=== PATIENT | male | born 1980 | race Caucasian/White ===

== ENCOUNTER 2016-09-26 22:01 | Emergency (ER) | payer OTHER ==
[~2016-09-26] VITALS: Ht 177.8 cm; Wt 80.1 kg
[2016-09-26 22:08] VITALS: TEMP 36.9; Ht 177.8 cm; Wt 80.1 kg
[2016-09-26] MEDS ORDERED: KETOROLAC TROMETHAMINE 30 MG/ML VIAL IV STA (22:40)
[2016-09-26] MEDS ORDERED: DEXAMETHASONE SOD INJ 10 MG/ML VIAL IV ONE (22:45)
[2016-09-26] MEDS ORDERED: SODIUM CHLORIDE 0.9% 1000ML 1,000 ML IV ONE (22:45)
[2016-09-26 22:55] LABS: BASO % 0.3 %; BASO ABS # 0.03 K/uL (0-0.2); COMPLETE YES; EOS % 1.8 %; HEMATOCRIT 41.2 % (42-52); IG% 0.4 %; LYMPH % 34.8 %; LYMPH ABS # 4.14 K/uL (1.2-3.4); MEAN CELL VOLUME 83.4 fL (80-100); MEAN CORPUSCULAR HEMOGLOBIN 30.2 pg (25-34); MEAN CORPUSCULAR HGB CONC 36.2 g/dl (32-36); MEAN PLATELET VOLUME 9.5 fL (7.4-10.4); MONO % 5.8 %; NEUT % 56.9 %; PLATELET COUNT 273 K/uL (130-400); RED BLOOD COUNT 4.94 M/uL (4.7-6.1); WHITE BLOOD COUNT 11.91 K/uL (4.8-10.8)
[2016-09-26 23:18] LABS: URINE APPEARANCE CLOUDY (CLEAR); URINE BILIRUBIN NEG (NEG); URINE COLOR YELLOW; URINE EPITHELIAL CELL AUTO 0-5 /lpf (0-5); URINE NITRITE NEG (NEG); URINE PH 7.5 (4.5-7.5); URINE SPECIFIC GRAVITY 1.018 (1.000-1.030); UROBILINOGEN NEG (NEG); ZZUR CULT IF INDIC CLEAN CATCH NO
[2016-09-26 23:26] LABS: MANUAL MICROSCOPIC REQUIRED? NO; REVIEW REQ? NO
[2016-09-26 23:49] LABS: ALB/GLOB RATIO 0.9 (0.9-2); ALKALINE PHOSPHATASE 67 U/L (45-117); AST/SGOT 33 U/L (15-37); BLOOD UREA NITROGEN 21 mg/dl (7-18); BUN/CREATININE RATIO 20.5 (10-20); C-REACTIVE PROTEIN 0.54 mg/dl (0-0.29); CALCIUM 8.5 mg/dl (8.5-10.1); CARBON DIOXIDE 28 mmol/L (21-32); CHLORIDE 102 mmol/L (98-107); CKMB/CK RATIO 2.2 (0-3.0); MAGNESIUM 1.9 mg/dl (1.8-2.4); POTASSIUM 3.7 mmol/L (3.5-5.1); SODIUM 137 mmol/L (136-145)
[2016-09-26 23:55] LABS: GLUCOSE 113 mg/dl (70-99)
[2016-09-26 23:59] LABS: ALT/SGPT 36 U/L (12-78)
[2016-09-27 00:09] LABS: LYME DISEASE AB IGG NEG (NEG); LYME DISEASE AB IGM NEG (NEG)
[2016-09-27] MEDS ORDERED: LORAZEPAM 2 MG/ML 1 ML VIAL IV STA (00:31)
[2016-09-27] MEDS ORDERED: GADAVIST IV PRN (03:00)
[2016-09-27] MEDS ORDERED: PRED20TA PO (06:27)
[2016-09-27 06:42] VITALS: BP 118/72; PULSE 68; O2SAT 98
--- NOTE | 2016-09-27 07:07 | EMERGENCY ROOM VISIT NOTE ---
History First contact with patient: 22:18 Chief Complaint: LEG PAIN,LEG INJURY Stated Complaint: PAIN/NUMBNESS IN LEGS,DIZZY History of Present Illness The patient is a 36 year old male who presents to the Emergency Room with complaints of bilateral lower extremity pain worsening over the past one day. The patient states that he was trying to sleep this evening when he had a burning sensation in his left lateral thigh that radiates down to his left foot. He has had intermittent symptoms of this over the past few weeks. He has not had a fever or chills. The patient reports having a fall down steps at home, where she fell backwards, and struck his back about 5 weeks ago. The patient did not seek medical attention following this injury. The patient is able to ambulate and does not have difficulty with bowel or bladder control. The patient reports a past history of opioid addiction and abuse. He denies IV drug abuse. He is currently under the care of a methadone clinic, but does freely discuss this. He does not report other symptoms. He rates his current discomfort an 8/10. He has not had anything [id number] for his discomfort. Review of Systems More than 10 systems were reviewed and otherwise negative with the exception of history of present illness. Past Medical/Surgical History Medical Problems: (1) No Known Active Medical Problems Family History No pertinent family history Social History Smoking Status: Current Every Day Smoker Alcohol Use: occasionally Drug Use: other (past history of opioid pill abuse) Marital Status: Occupation Status: employed Current/Historical Medications Scheduled Prednisone (Prednisone), 0 PO DAILY Allergies Coded Allergies: No Known Allergies (Unverified , 07/02/13) Physical Exam Vital Signs Date Time Temp Pulse Resp B/P Pulse Ox O2 Delivery O2 Flow Rate FiO2 09/27/16 06:42 68 18 118/72 98 Room Air 09/27/16 05:08 63 16 112/60 98 Room Air 09/27/16 03:11 64 18 118/69 95 Room Air 09/27/16 00:36 68 134/18 96 Room Air 09/26/16 23:20 61 18 142/70 97 Room Air 09/26/16 22:08 36.9 75 18 132/90 97 Room Air Physical Exam VITALS: Vitals are noted on the nurse's note and reviewed by myself. Vital signs stable. GENERAL: Well-developed, well-nourished, white male, who is in no acute distress and resting comfortably. Patient is cooperative with the examination. HEAD: Normocephalic atraumatic. HEART: Regular rate and rhythm without murmurs gallops or rubs. LUNGS: Clear to auscultation bilaterally without wheezes, rales or rhonchi. No retractions or accessory muscle use. MUSCULOSKELETAL: There is mild low back tenderness on palpation. No distinct SI joint tenderness. Most of the tenderness is through the L2 to S1 distribution. No erythema or edema. Negative straight leg raise bilateral. Normal deep tendon reflexes to the lower extremities. No saddle paresthesias. Neurovascular status is intact the distal extremities. NEURO: Patient was alert and oriented to person place and time. CN II through XII grossly intact. Medical Decision & Procedures ER Provider Diagnostic Interpretation: Preliminary Findings Only See Final Report For Complete Findings CT L SPINE: There are 5 [id number] lumbar vertebrae. Bones are osteopenic. There are subacute nondisplaced fractures through the right L3 and L4 transverse processes with visible callus formation compatible with healing. Vertebral body height and alignment are maintained. There is no evidence of acute fracture or subluxation. There is mild multilevel degenerative disc disease, worst at L4-L5 with mild loss of disc height and trace degenerative retrolisthesis of L4. Sacroiliac joints are normally aligned. Visualized portion of the abdominal cavity is unremarkable. Preliminary Findings Only See Final Report For Complete Findings MRI L SPINE : Comparison is made to CT lumbar spine performed 09/26/16. The conus medullaris is seen opposite L1 and appears normal. There is no evidence of cord compression. There is no abnormal cord signal. There is no abnormal enhancement of the conus or the cauda equina following contrast administration. There is disc desiccation at L4-L5 and L5-S1. There is disc height loss at L4- L5. There are endplate changes at the L4-L5 disc, most prominent in the anterior inferior L4 endplate consisting of T1 signal hypointensity, T2 signal hyperintensity, and postcontrast enhancement, compatible with Modic type I degenerative endplate changes. There is a high intensity zone in the left foraminal posterior aspect of the L4-L5 disc on T2-weighted images representing an annular fissure. There is mild right foraminal narrowing at L4-L5 and mild bilateral foraminal narrowing at L5-S1. Redemonstrated are subacute fractures of the right L3 and L4 transverse processes with STIR hyperintense signal. Laboratory Results 09/26/16 22:38 Red Blood Count 4.94, Mean Corpuscular Volume 83.4, Mean Corpuscular Hemoglobin 30.2, Mean Corpuscular Hemoglobin Concent 36.2, Mean Platelet Volume 9.5, Neutrophils (%) (Auto) 56.9, Lymphocytes (%) (Auto) 34.8, Monocytes (%) (Auto) 5.8, Eosinophils (%) (Auto) 1.8, Basophils (%) (Auto) 0.3, Neutrophils # (Auto) 6.78, Lymphocytes # (Auto) 4.14, Monocytes # (Auto) 0.69, Eosinophils # (Auto) 0.22, Basophils # (Auto) 0.03 09/26/16 22:38 Test 09/26/16 22:38 09/26/16 23:00 White Blood Count 11.91 K/uL (4.8-10.8) Red Blood Count 4.94 M/uL (4.7-6.1) Hemoglobin 14.9 g/dL (14.0-18.0) Hematocrit 41.2 % (42-52) Mean Corpuscular Volume 83.4 fL (80-100) Mean Corpuscular Hemoglobin 30.2 pg (25-34) Mean Corpuscular Hemoglobin Concent 36.2 g/dl (32-36) Platelet Count 273 K/uL (130-400) Mean Platelet Volume 9.5 fL (7.4-10.4) Neutrophils (%) (Auto) 56.9 % Lymphocytes (%) (Auto) 34.8 % Monocytes (%) (Auto) 5.8 % Eosinophils (%) (Auto) 1.8 % Basophils (%) (Auto) 0.3 % Neutrophils # (Auto) 6.78 K/uL (1.4-6.5) Lymphocytes # (Auto) 4.14 K/uL (1.2-3.4) Monocytes # (Auto) 0.69 K/uL (0.11-0.59) Eosinophils # (Auto) 0.22 K/uL (0-0.5) Basophils # (Auto) 0.03 K/uL (0-0.2) RDW Standard Deviation 37.6 fL (36.4-46.3) RDW Coefficient of Variation 12.5 % (11.5-14.5) Immature Granulocyte % (Auto) 0.4 % Immature Granulocyte # (Auto) 0.05 K/uL (0.00-0.02) Erythrocyte Sedimentation Rate 18 mm/hr (0-14) Anion Gap 7.0 mmol/L (3-11) Est Creatinine Clear Calc Drug Dose 103.4 ml/min Estimated GFR () 110.2 Estimated GFR (Non- 95.1 BUN/Creatinine Ratio 20.5 (10-20) Calcium Level 8.5 mg/dl (8.5-10.1) Magnesium Level 1.9 mg/dl (1.8-2.4) Total Bilirubin 0.4 mg/dl (0.2-1) Aspartate Amino Transf (AST/SGOT) 33 U/L (15-37) Alanine Aminotransferase (ALT/SGPT) 36 U/L (12-78) Alkaline Phosphatase 67 U/L (45-117) Total Creatine Kinase 293 U/L (39-308) Creatine Kinase MB 6.5 ng/ml (0.5-3.6) Creatine Kinase MB Ratio 2.2 (0-3.0) Troponin I < 0.015 ng/ml (0-0.045) C-Reactive Protein 0.54 mg/dl (0-0.29) Total Protein 7.3 gm/dl (6.4-8.2) Albumin 3.5 gm/dl (3.4-5.0) Globulin 3.8 gm/dl (2.5-4.0) Albumin/Globulin Ratio 0.9 (0.9-2) Thyroid Stimulating Hormone (TSH) 5.000 uIu/ml (0.300-4.500) Lyme Disease IgG Antibody NEG (NEG) Lyme Disease IgM Antibody NEG (NEG) Urine Color YELLOW Urine Appearance CLOUDY (CLEAR) Urine pH 7.5 (4.5-7.5) Urine Specific [place] 1.018 (1.000-1.030) Urine Protein NEG (NEG) Urine Glucose (UA) NEG (NEG) Urine Ketones NEG (NEG) Urine Occult Blood NEG (NEG) Urine Nitrite NEG (NEG) Urine Bilirubin NEG (NEG) Urine Urobilinogen NEG (NEG) Urine Leukocyte Esterase NEG (NEG) Urine WBC (Auto) 0 /hpf (0-5) Urine RBC (Auto) 0-4 /hpf (0-4) Urine Hyaline Casts (Auto) 0 /lpf (0-5) Urine Epithelial Cells (Auto) 0-5 /lpf (0-5) Urine Bacteria (Auto) NEG (NEG) Medications Administered Medications (Trade) Dose Ordered Sig/Mynor Route Start Time Stop Time Status Last Admin Dose Admin Sodium Chloride (Nss 1000ml) 1,000 ml @ 999 mls/hr Q1H1M ONCE IV 09/26/16 22:45 09/26/16 23:45 DC 09/26/16 22:51 999 MLS/HR Dexamethasone Sodium Phosphate (Decadron Inj) 10 mg NOW ONCE IV 09/26/16 22:45 09/26/16 22:46 DC 09/26/16 22:50 10 MG Ketorolac Tromethamine (Toradol Inj) 30 mg NOW STAT IV 09/26/16 22:40 09/26/16 22:45 DC 09/26/16 22:51 30 MG Lorazepam (Ativan Inj) 2 mg NOW STAT IV 09/27/16 00:31 09/27/16 00:35 DC 09/27/16 02:02 2 MG ED Course Physical exam and history were performed. Nursing notes and EMR were reviewed. Patient appears to have bilateral lower extremity pains with lateral paresthesias. The patient does not have bowel or bladder control issues. He does have a fall 4 or 5 weeks ago of uncertain significance. The patient does have a history of opioid drug abuse. IV access was established and labs were obtained. The patient was hydrated with normal saline and provided IV Toradol and IV Decadron. Because of the history of trauma I did elect CT scan of the L- spine. The patient's blood work is as above and was reviewed. The patient does have a very slightly elevated white blood cell count. He does not have significant anemia,, or gross electrolyte imbalance. His CRP and ESR are also slightly elevated. CT scan of the lumbar spine shows subacute transverse process fractures, which may be from his fall, but do not appear to be directly contributing to his symptoms today.. I discussed the case with my attending physician, Dr Jin, who remained closely involved in patient care and decision making. We have concern is the patient has vague neurologic symptoms with history of drug abuse. He also has an elevated sedimentation rate and CRP, and we could not rule out discitis or other infectious etiology. Because of this the patient was felt to be a good candidate for MRI. This was ordered. The patient was provided IV Ativan prior to the MRI. MRI returns as above and shows multiple findings at the L4, L5, and S1 levels. This clinically would correlate with the patient's symptoms in his lower extremities. Because he does have findings on MRI and discussed the case with the on-call orthospine specialist, . Dr. Haddad felt patient was a good candidate for outpatient follow-up. He recommended a course of steroids, which seems reasonable. Because the patient is on methadone we will not provide any further analgesics. I discussed the patient's findings at length with him. He is to contact Dr. Haddad's office later this morning to arrange appropriate follow-up. The patient was otherwise invited back to the ER with any new, worsening, or concerning symptoms. He voiced understanding was pleased with plan of care and rated his discomfort a 0/10 at the time of departure. The chart was completed utilizing [employer] Speech Voice Recognition Software. Grammatical errors, random word insertions, pronoun errors, and incomplete sentences are an occasional consequence of this system due to software limitations, ambient noise, and hardware issues. Any formal questions or concerns about the content, text, or information contained within the body of this dictation should be directly addressed to the provider for clarification. . Medical Decision Differential diagnosis: Etiologies such as musculoskeletal, disc herniation, fracture, aortic disease, metastatic disease, cord compression, discitis, infection, renal colic, gastrointestinal, acute exacerbation of chronic back pain, sciatica, cauda equina, as well as others were entertained. [place] Drug [place] Search Results: patient reviewed within database, see additional documentation Impression Primary Impression: Low back pain with sciatica Additional Impression: Fracture of transverse process of vertebra Departure Information Dispostion Home / Self-Care Condition GOOD Prescriptions Prednisone (Prednisone) 20 Mg Tab 0 PO DAILY, #18 TAB 3 DAILY FOR 3 DAYS, THEN 2 DAILY FOR 3 DAYS, THEN 1 DAILY FOR 3 DAYS. Prov: Ulises Parry PA-C 09/27/16 Referrals Amando Haddad, DO Forms HOME CARE DOCUMENTATION FORM, IMPORTANT VISIT INFORMATION Patient Instructions A Signature Page, My [facility] Additional Instructions You were seen and evaluated today on an emergency basis only. This is not a substitute for, or an effort to provide, complete comprehensive medical care. It is not possible to recognize and treat all injuries or illnesses in a single emergency department visit. For this reason it is recommended that you followup with [facility], Dr. Haddad's office, by telephone today to arrange a follow-up appointment. For baseline pain relief you may alternate ibuprofen and acetaminophen every 4 hours for pain control. Take 600 mg ibuprofen (Advil) and then 4 hours later take 1000 mg acetaminophen (Tylenol). Do not take more than 3000 mg acetaminophen in a single day. Take prednisone as prescribed You are welcome to return to the emergency department anytime with new, worsening, or concerning symptoms.
--- NOTE | 2016-09-27 07:19 | DIAGNOSTIC IMAGING REPORT ---
CT LUMBAR SPINE WITHOUT CT DOSE: 677.28 mGy.cm CLINICAL HISTORY: Low back pain status post trauma TECHNIQUE: Helical images were acquired in transverse plane. Reformatted sagittal and coronal images were reviewed. CONTRAST: No contrast was administered COMPARISON STUDY: None. FINDINGS: L1-2 level: There is no evidence of significant disc bulge or focal herniation. There is no evidence of spinal or foraminal stenosis. L2-3 level: There is no evidence of significant disc bulge or focal herniation. There is no evidence of spinal or foraminal stenosis. L3-4 level: There is no evidence of significant disc bulge or focal herniation. There is no evidence of spinal or foraminal stenosis. L4-5 level: There is a circumferential disc bulge with mild to moderate spinal stenosis. L5-S1 level: There is no evidence of significant disc bulge or focal herniation. There is no evidence of spinal or foraminal stenosis. No acute vertebral body fractures are visualized. There are healing right L3 and L4 transverse process fractures. IMPRESSION: 1. Healing right L3 and L4 transverse process fractures 2. No acute vertebral body fractures 3. Mild to moderate spinal stenosis the L4-5 level. Electronically signed by: Douglas Zapata M.D. 09/27/2016 7:17 AM
--- NOTE | 2016-09-27 07:25 | DIAGNOSTIC IMAGING REPORT ---
MRI LUMBAR SPINE COMBINATION CLINICAL HISTORY: Low back pain. Elevated sedimentation rate. Elevated white count. History of drug use. Possible discitis/osteomyelitis. TECHNIQUE: Sagittal and axial T1, T2 and STIR images were obtained. Imaging was performed before and after the administration of 8 cc of intravenous Gadavist COMPARISON STUDY: Noncontrast CT scan dated 09/26/2016 OBSERVATIONS: The vertebral bodies and posterior elements appear intact. There is no abnormal bony signal present to suggest a marrow replacement process. L1-2: No disc protrusions or extrusions. No evidence of spinal canal or neural foraminal compromise. L2-3: No disc protrusions or extrusions. No evidence of spinal canal or neural foraminal compromise. L3-4: No disc protrusions or extrusions. No evidence of spinal canal or neural foraminal compromise. L4-5: There is a circumferential disc bulge with mild spinal stenosis. There is a left posterior lateral annular fissure. There is mild left-sided foraminal narrowing. L5-S1: No disc protrusions or extrusions. There is no evidence of spinal stenosis. There is mild bilateral foraminal narrowing.. The conus medullaris and cauda equina appear normal. There are no findings to indicate discitis or osteomyelitis. There is marrow edema involving the right L3 and L4 transverse processes, consistent with the patient's known healing fractures. There are no pathologically enhancing masses. IMPRESSION: 1. No evidence of discitis or osteomyelitis 2. Degenerative changes the L4-5 level with mild spinal stenosis, and mild left-sided foraminal narrowing. There is a left-sided annular fissure 3. Mild bilateral foraminal narrowing at the L5-S1 level 4. Edema involving the right L3 and L4 transverse processes, consistent with the patient's known healing fractures Electronically signed by: Douglas Zapata M.D. 09/27/2016 7:23 AM
== END 2016-09-27 06:44 | disposition home or self-care (01) ==
LOC: C.EDB 22:02
DX: M54.40 Lumbago with sciatica, unspecified side (principal); S32.009A Unspecified fracture of unspecified lumbar vertebra, initial encounter for closed fracture; W10.9XXA Fall (on) (from) unspecified stairs and steps, initial encounter; F17.200 Nicotine dependence, unspecified, uncomplicated

== ENCOUNTER 2016-10-26 10:02 | Emergency (ER) | payer OTHER ==
[~2016-10-26] VITALS: Ht 177.8 cm; Wt 81.1 kg
[~2016-10-26 10:02] MED LIST: PRED20TA PO
[2016-10-26 10:06] VITALS: TEMP 36.9; Ht 177.8 cm; Wt 81.1 kg
[2016-10-26] MEDS ORDERED: HYDROCODONE/ACETAMINOPHEN 7.5/325MG TAB PO STA (11:05)
[2016-10-26] MEDS ORDERED: CYCLOBENZAPRINE HCL 10 MG TAB PO STA (11:05)
--- NOTE | 2016-10-26 11:08 | EMERGENCY ROOM VISIT NOTE ---
History Report prepared by Tanya: Kaleb Brooks Under the Supervision of: Dr. Rocio Butcher M.D. First contact with patient: 10:52 Chief Complaint: BACK PAIN Stated Complaint: LOWER BACK PAIN-ASSOCIATED W/FRACTURE History of Present Illness The patient is a 36 year old male who presents to the Emergency Room with complaints of worsening back pain for the past two weeks. The patient slipped and fell two months ago where he landed on his back on the stairs inside his home. He fractured his L3 and L4 transverse processes and has some disc herniation in his lower lumbar spine. The patient complains of back pain, numbness, and tingling in his legs. He notes that he has recently developed a limp. He also notes that bowel movements worsen the discomfort. He denies loss of control of his bowels or bladders. He has a follow-up appointment with his PCP in the next few days. Source of History: patient Onset: 2 weeks Position: back Timing: worsening Modifying Factors (Worsening): other (bowel movement) Associated Symptoms: + numbness (in legs) Note: Other associated symptoms: tingling in legs, limping Denies: loss of control of bowels or bladder Review of Systems See HPI for pertinent positives & negatives. A total of 10 systems reviewed and were otherwise negative. Past Medical & Surgical Medical Problems: (1) No Known Active Medical Problems Family History No pertinent family history Social History Smoking Status: Current Every Day Smoker Alcohol Use: occasionally Drug Use: other Marital Status: Occupation Status: employed Current/Historical Medications Scheduled Prednisone (Prednisone), 40 MG PO DAILY Scheduled PRN Cyclobenzaprine Hcl (Flexeril), 5 MG PO TID PRN for Muscle Spasms Hydrocodone/Acetaminophen 7.5MG/325MG ([place] 7.5MG/325MG), 1 TAB PO Q6 PRN for Pain Allergies Coded Allergies: No Known Allergies (Unverified , 07/02/13) Physical Exam Vital Signs Date Time Temp Pulse Resp B/P Pulse Ox O2 Delivery O2 Flow Rate FiO2 10/26/16 11:13 75 16 142/93 98 Room Air 10/26/16 10:06 36.9 74 18 146/80 96 Room Air Physical Exam Vital signs reviewed. General: Well-appearing, in no significant distress. HEENT: No scleral icterus, PERRLA, neck supple. Atraumatic. Cardiovascular: Regular rate and rhythm, no extra sounds. Pulmonary: Clear to auscultation bilaterally, normal work of breathing. Abdomen: Soft, nontender, nondistended, positive bowel sounds. Musculoskeletal: Atraumatic, no peripheral edema. Tenderness to palpation over lumbar paraspinous muscles. Neurologic: Patient awake alert and oriented x 3, full strength in all 4 extremities. Cranial nerves 2 through 12 grossly intact. Skin: Warm, dry, no rash Medical Decision & Procedures Medications Administered Medications (Trade) Dose Ordered Sig/Mynor Route Start Time Stop Time Status Last Admin Dose Admin Prednisone (PredniSONE TAB) 60 mg NOW STAT PO 10/26/16 11:05 10/26/16 11:06 DC 10/26/16 11:11 60 MG Cyclobenzaprine HCl (Flexeril Tab) 10 mg NOW STAT PO 10/26/16 11:05 10/26/16 11:06 DC 10/26/16 11:11 10 MG Acetaminophen/ Hydrocodone Bitart ([place] 7.5/325 Tab) 1 tab NOW STAT PO 10/26/16 11:05 10/26/16 11:06 DC 10/26/16 11:12 1 TAB ED Course 1054: Past medical records reviewed. The patient was evaluated in room B3. A complete history and physical examination was performed. 1105: Ordered Acetaminophen/ Hydrocodone Bitart 1 tab PO, Flexeril Tab 10 mg Po , Prednisone 60 mg PO. 1126: Upon reevaluation, the patient appeared to have improvement of his symptoms. I discussed findings with him. He verbalized agreement of the treatment plan. The patient was discharged home. Medical Decision Differential diagnosis: Etiologies such as musculoskeletal, disc herniation, fracture, aortic disease, metastatic disease, cord compression, discitis, infection, renal colic, gastrointestinal, acute exacerbation of chronic back pain, sciatica, cauda equina, as well as others were entertained. This pt was evaluated and appeared to be in no distress. He denies weakness of the lower extremities. Pt previous imaging studies were reviewed. I do not see significant evidence of cord compromising injury. I suspect pt is suffering some lumbar radiculopathy. He has been referred to spine and has an appt pending in 8 days. He was given a short course of hydrocodone and prednisone. Pt has multiple Rx in PDMP recently. He will return to the ED for worsening of symptoms or any medical concerns. [place] Drug [place] Search Results: patient reviewed within database (Last prescription was filled October 14 from PCP for Xanax. ) Impression Primary Impression: Low back pain with sciatica Scribe Attestation The scribe's documentation has been prepared under my direction and personally reviewed by me in its entirety. I confirm that the note above accurately reflects all work, treatment, procedures, and medical decision making performed by me. Departure Information Dispostion Home / Self-Care Prescriptions Prednisone (Prednisone) 20 Mg Tab 40 MG PO DAILY, #8 TAB Prov: Rocio Butcher M.D. 10/26/16 Hydrocodone/Acetaminophen 7.5MG/325MG ([place] 7.5MG/325MG) Tab 1 TAB PO Q6 Y for Pain, #14 TAB Prov: Rocio Butcher M.D. 10/26/16 Cyclobenzaprine Hcl (FLEXERIL) 5 Mg Tab 5 MG PO TID Y for Muscle Spasms, #14 TAB Prov: Rocio Butcher M.D. 10/26/16 Referrals Judith Wild M.D. (PCP) Forms HOME CARE DOCUMENTATION FORM, IMPORTANT VISIT INFORMATION Patient Instructions [facility] Additional Instructions Diagnosis: Low back pain with sciatica Oxycodone 1 tab every 6 hours as needed for pain. Do not drive or take Tylenol with this medication. Flexeril 5 mg 3 times daily as needed for muscle spasm. Warm compresses and gentle stretching. Prednisone 40 mg for 4 more days. Start tomorrow. Follow-up with your physician for reevaluation and Dr. Haddad her as scheduled. Return to the ER for worsening of symptoms or any medical concerns. Problem Qualifiers Primary Impression: Low back pain with sciatica Chronicity: chronic Back pain laterality: bilateral Sciatica laterality: bilateral sciatica Qualified Codes: M54.42 - Lumbago with sciatica, left side ; M54.41 - Lumbago with sciatica, right side; G89.29 - Other chronic pain
[2016-10-26 11:13] VITALS: BP 142/93; PULSE 75; O2SAT 98
[2016-10-26] MEDS ORDERED: CYCL5TAB PO (11:22)
[2016-10-26] MEDS ORDERED: PRED20TA PO (11:22)
[2016-10-26] MEDS ORDERED: HYDR-3983 PO (11:22)
== END 2016-10-26 11:35 | disposition home or self-care (01) ==
LOC: C.EDB 10:04
DX: M54.42 Lumbago with sciatica, left side (principal); M54.41 Lumbago with sciatica, right side; G89.29 Other chronic pain; M51.26 Other intervertebral disc displacement, lumbar region; F17.200 Nicotine dependence, unspecified, uncomplicated